=== PATIENT | female | born 1970 | race American Indian/Alaskan Native ===

== ENCOUNTER 2017-02-10 08:05 | Inpatient (IN) | payer BC ==
[~2017-02-10 08:05] MED LIST: ANCEF/STERILE WATER 2 GM/20 ML 2 GM/20 ML SYRINGE IV NR; APRESOLINE IV PRN; DECADRON ONE; DILAUDID IV PRN; DILAUDID ONE; DIPRIVAN 10 MG/ML IV ONE; FLAGYL 500 MG/100 ML 500 MG/100 ML BAG IV NR; LOVENOX SUB-Q NR; MORPHINE IV PRN; MYLICON PO PRN; NEOSTIGMINE ONE; REGLAN IV PRN; ROBINUL ONE; SUBLIMAZE ONE; TRANSDERM-SCOP TD SCH; XYLOCAINE MPF 2% ONE; ZEMURON IV ONE; ZOFRAN IV PRN; ZOFRAN ONE
[2017-02-10] MEDS ORDERED: TRANSDERM-SCOP TD NR (09:00)
[2017-02-10] MEDS ORDERED: PEPCID IV NR (09:00)
[2017-02-10] MEDS ORDERED: VERSED IV NR (09:00)
--- NOTE | 2017-02-10 09:11 | Anesthesia Day of Surgery ---
Anesthesia Day of Surgery - Day of Surgery Patient Examined: Yes Patient H&P Reviewed: Yes Patient is NPO: Yes
--- NOTE | 2017-02-10 09:11 | Anesthesia Consultation ---
Anesthesia Consult and Med Hx Date of service: 02/10/17 - Airway Anesthetic Teeth Evaluation: Good ROM Head & Neck: Adequate Mental/Hyoid Distance: Adequate Mallampati Class: Class II Intubation Access Assessment: Probably Good - Pulmonary Exam CTA: Yes - Cardiac Exam Cardiac Exam: RRR - Pre-Operative Health Status ASA Pre-Surgery Classification: ASA3 Proposed Anesthetic Plan: General - Pulmonary Hx Smoking: No SOB: No Hx Sleep Apnea: Yes (+CPAP) - Cardiovascular System Hx Hypertension: No - Central Nervous System Hx Seizures: No CVA: No Hx Psychiatric Problems: Yes - Endocrine Hx Renal Disease: No Hx Liver Disease: No Hx Non-Insulin Dependent Diabetes: No - Other Systems Hx Alcohol Use: No Hx Substance Use: No Hx Cancer: No Hx Obesity: Yes (MORBID)
[2017-02-10] MEDS ORDERED: NACL BACTERIOSTATIC INFILTRATI ONE (09:19)
[2017-02-10] MEDS ORDERED: REGLAN PO NR (09:30)
[2017-02-10] MEDS: LACTATED RINGERS 1,000 ML IV SCH ×2 (09:30→23:22)
[2017-02-10 09:53] LABS: Basophils % (Auto) 0.7 % (0.0-1.8); Eosinophils % (Auto) 1.6 % (0.0-4.3); Hematocrit 37.9 % (30.3-42.9); Hemoglobin 12.4 gm/dl (10.1-14.3); Mean Corpuscular HGB Conc 33 % (30-34); Mean Corpuscular Hemoglobin 31 pg (28-32); Mean Corpuscular Volume 94 fl (79-97); Platelet Count 281 K/mm3 (140-440); Red Blood Count 4.01 M/mm3 (3.65-5.03); Red Cell Distribution Width 13.6 % (13.2-15.2); White Blood Count 7.4 K/mm3 (4.5-11.0)
[2017-02-10] MEDS ORDERED: NEO SYNEPHRINE/NS Syringe(OR USE) IV ONE (10:00)
[2017-02-10] MEDS ORDERED: LOVENOX SUB-Q SCH (10:00)
[2017-02-10] MEDS ORDERED: REGLAN IV NR (10:00)
[2017-02-10 10:20] LABS: Alanine Aminotransferase 14 units/L (7-56); Albumin 3.8 g/dL (3.9-5); Alkaline Phosphatase 56 units/L (35-129); Anion Gap 16 mmol/L; BUN/Creatinine Ratio 12.85; Blood Urea Nitrogen 9 mg/dL (7-17); Calcium 8.6 mg/dL (8.4-10.2); Carbon Dioxide 25 mmol/L (22-30); Chloride 102.9 mmol/L (98-107); Glucose 107 mg/dL (65-100); Potassium 4.3 mmol/L (3.6-5.0); Sodium 140 mmol/L (137-145); Total Protein 7.5 g/dL (6.3-8.2)
[2017-02-10] MEDS ORDERED: ANCEF/STERILE WATER 2 GM/20 ML 2 GM/20 ML SYRINGE IV NR (11:00)
[2017-02-10] MEDS ORDERED: FLAGYL 500 MG/100 ML 500 MG/100 ML BAG IV NR (11:00)
[2017-02-10] MEDS ORDERED: MARCAINE-EPI/PF 0.5%-1:200,000 INFILTRATI ONE ×3 (12:16→12:54)
[2017-02-10] MEDS ORDERED: XYLOCAINE 1% 20 mL ONE (12:16)
[2017-02-10] MEDS ORDERED: XYLOCAINE 1% 20 mL INFILTRATI ONE (12:24)
[2017-02-10] MEDS ORDERED: NACL 0.9% IR ONE ×2 (12:24)
[2017-02-10] MEDS ORDERED: LACTATED RINGERS 1,000 ML ONE (13:00)
[2017-02-10] MEDS ORDERED: SUBLIMAZE ONE (13:27)
[2017-02-10] MEDS ORDERED: DILAUDID IV PRN (15:13)
[2017-02-10] MEDS: DILAUDID IV PRN ×3 (15:35→15:56)
[2017-02-10] MEDS ORDERED: TORADOL ONE (15:44)
[2017-02-10] MEDS ORDERED: TORADOL IV ONE (15:49)
--- NOTE | 2017-02-10 16:19 | Post Anesthesia Evaluation ---
- Post Anesthesia Evaluation Patient Participated: Yes Airway Patent: Yes Stable Respiratory Function: Yes Nausea/Vomiting: No Temp > 96.8F: Yes Pain Manageable: Yes Adequeate Hydration: Yes Anesthesia Complications: No Block Receding Appropriately: Not Applicable Patient on Ventilator: No
[2017-02-11] MEDS: TORADOL IV SCH ×2 (01:29→08:34)
[2017-02-11] MEDS: LACTATED RINGERS 1,000 ML IV SCH (06:20)
[2017-02-11 07:54] LABS: Basophils % (Auto) 0.4 % (0.0-1.8); Eosinophils % (Auto) 0.2 % (0.0-4.3); Hematocrit 33.6 % (30.3-42.9); Hemoglobin 11.2 gm/dl (10.1-14.3); Mean Corpuscular HGB Conc 33 % (30-34); Mean Corpuscular Hemoglobin 32 pg (28-32); Mean Corpuscular Volume 95 fl (79-97); Platelet Count 244 K/mm3 (140-440); Red Blood Count 3.56 M/mm3 (3.65-5.03); Red Cell Distribution Width 13.3 % (13.2-15.2); White Blood Count 14.3 K/mm3 (4.5-11.0)
[2017-02-11 08:05] LABS: Anion Gap 15 mmol/L; Blood Urea Nitrogen 9 mg/dL (7-17); Calcium 8.2 mg/dL (8.4-10.2); Carbon Dioxide 25 mmol/L (22-30); Glucose 94 mg/dL (65-100); Potassium 4.2 mmol/L (3.6-5.0); Sodium 137 mmol/L (137-145)
--- NOTE | 2017-02-11 08:33 | Admit Criteria Form ---
Admission Criteria Documentation: AMBULATORY SURGERY EXCEPTION CRITERIA Ambulatory Surgery Exception Criteria ( Place 'X' for any and all applicable criteria): Surgery or procedure performed on ambulatory basis may require inpatient stay for[A] ANY ONE of the following(1)(2)(3)(4)(5)(6)(7)(8)(9): [X] I. A preoperative situation, condition, or finding that warrants inpatient stay as indicated by ANY ONE of the following: [] a) Inpatient care needed because of severity of a disease or condition rather than the surgery (eg, severe cardiac or respiratory disease, severe infection) (15) (16 ) (17) (18) [] b) Emergent procedure (eg, angioplasty for acute ischemia)(19) [] c) Complex surgical approach or situation as indicated by ANY ONE of the following(3): [] i) Open approach needed instead of usual endoscopic, transcatheter, or other less invasive procedure [] ii) Difficult approach because of previous operation [] iii) Airway monitoring required after open neck procedures(20)(21) [] iv) Large mass requiring unusually extensive dissection [] v) Additional complicating feature requiring inpatient care (eg, drain management)(22(23): [X] d) Major surgery in a pt with high anesthetic risk as indicated by ANY ONE of the following (2)(3)(5)(7)(8): [X] i) ASA risk class III or higher (severe systemic disease impairing function) [D] [] ii) Advanced age (eg, older than 85 years)(14)(24) [] iii) Symptomatic heart failure(25) [] iv) Symptomatic asthma or COPD(8)(21) [] v) Morbid obesity with hemodynamic or respiratory problems(20)( 21)(26)(27) [] vi) Obstructive sleep apnea(20)(21) [] vii) Former premature infants who are younger than 60 weeks [] viii) High risk for severe postoperative abnormalities (eg, severe postoperative hypocalcemia after parathyroidectomy for severe hyperparathyroidism)(27)( 28) [] ix) Unstable angina(25) [] e) Drug-related risk requiring inpatient stay as indicated by ANY ONE of the following(5)(10)(14)(32)(33) [] i) Procedure requires discontinuing drugs or other therapy (eg , antiarrhythmic medication, antiseizure medication), which necessitates inpatient observation or treatment.(18)(31) [] ii) Major surgery and high risk drug use as indicated by ANY ONE of the following: [] 1) Active abuse of cocaine or similar drug [] 2) Monoamine oxidase inhibitor use [] 3) Other drug identified as posing risk [] f) Inadequate outpatient care situation as indicated by ANY ONE of the following(5)(10)(14)(32)(33) [] i) Patient lives remote from medical facility and procedure has urgent complication potential, and temporary nearby residence cannot be arranged [] ii) Patient will have postprocedure incapacitation and inadequate assistance at home, or alternative level of care cannot be arranged. [] iii) Patient will have long general anesthesia or procedure side effect resolution time, and competent person to stay with patient on first postoperative night at home or alternative level of care cannot be arranged. []iv) Other inadequate outpatient situation that cannot be handled by other means [] II. A perioperative event, condition, or finding that warrants inpatient stay as indicated by ANY ONE of the following (1)(2)(3): [] a) Inadequate physiologic recovery: cardiovascular, respiratory, or hemodynamic status not normal or near preoperative baseline(18) [] b) Hemodynamic instability [] c) Patient not alert with near normal or baseline mental status [] d) Temperature not normal or as expected and not appropriate for outpatient treatment of condition [] e) Ambulatory or appropriate activity level status not yet achieved post procedure [E](34)(35)(36) [] f) Operative site not appropriate (eg, unexpected or excessive drainage or bleeding) [] g) Postoperative effects not resolved or adequately managed (eg, significant pain or vomiting not appropriate for outpatient or next level of care)(10)(12) [] h) Complicating features requiring inpatient care as indicated by ANY ONE of the following(37): [] i) Severe complications of procedure (eg, bowel injury, airway compromise, vascular injury,severe hemorrhage) [] ii) Extensive (eg, dissection far beyond usual scope of procedure ) or prolonged (eg, 120 minutes beyond usual) surgery needed requiring inpatient postoperative care [] iii) Conversion to an open or complex procedure that requires inpatient care (eg, open vs laparoscopic cholecystectomy, abdominal vs vaginal hysterectomy)(38) [] iv) Comorbid condition or test result identified during or post procedure that requires inpatient care (7) [] v) Malignant hyperthermia(30) [] vi) Other complicating feature requiring inpatient care(22)(23) Inpatient stay may be needed until ALL of the following are present (1)(2)(3)(4) (5)(6)(10)(14)(33)(40): []a) Physiologic recovery: cardiovascular, respiratory, and hemodynamic status normal or near preoperative baseline []b) Hemodynamic stability []c) Patient alert, with near normal or baseline mental status []d) Temperature appropriate: patient afebrile or temperature appropriate for outpt treatment of condition []e) Activity level appropriate: ambulatory or appropriate activity level post procedure []f) Operative site appropriate as indicated by ALL of the following: []i) Site dry or with expected drainage []ii) Any blood noted is as expected for procedure. []g) Postoperative effects resolved or managed as indicated by ALL of the following: []i) Pain management appropriate for outpatient (or next level of) care(10) []ii) Minimal nausea and vomiting: if present, successfully treated with oral medication(12) []iii) Headache, dizziness, or drowsiness (if present) are mild. []h) Voiding status acceptable as indicated by ANY ONE of the following: []i) Voiding spontaneously []ii) No voiding but instructions given for follow-up in 6 to 8 hours []iii) Urinary catheter in place, and instructions given for follow-up []i) Complicating features requiring inpatient care manageable at a lower level of care(37) []j) Comorbid conditions manageable at a lower level of care(37) The original [employer] content created by [employer] has been revised. The portions of the content which have been revised are identified through the use of italic text or in bold, and [facility] [employer] has neither reviewed nor approved the modified material. All other unmodified content is copyright [employer]. Please see references footnoted in the original [employer] edition 2016 Admission Criteria Met: Yes
[2017-02-11 08:59] VITALS: BP 128/78
--- NOTE | 2017-02-11 09:37 | Progress Note ---
Subjective Date of service: 02/11/17 Principal diagnosis: gerd, epigastric pain Interval history: Patient seen post-op day 1, satisfied with anesthesia, ambulating. Objective - Constitutional Vitals: Vital Signs - 12hr 02/10/17 02/11/17 02/11/17 22:00 00:12 01:29 Temperature 98.2 F Pulse Rate [ 70 93 H From Monitor] Respiratory 20 16 Rate Blood Pressure 118/72 [Left Arm] O2 Sat by Pulse 93 Oximetry 02/11/17 02/11/17 05:12 08:00 Temperature 98.2 F 98.4 F Pulse Rate [ 89 82 From Monitor] Respiratory 20 18 Rate Blood Pressure 122/77 128/78 [Left Arm] O2 Sat by Pulse 100 95 Oximetry - Labs CBC & Chem 7: 02/11/17 06:36 02/11/17 06:36 Labs: Abnormal lab results 02/10/17 02/10/17 02/11/17 Range/Units 09:30 09:30 06:36 WBC 14.3 H (4.5-11.0) K/mm3 RBC 3.56 L (3.65-5.03) M/mm3 Lymph % (Auto) 10.5 L (13.4-35.0) % [place] % (Auto) 10.4 H 10.0 H (0.0-7.3) % [place]born # 1.4 H (0.0-0.8) K/mm3 Seg Neutrophils % 78.9 H (40.0-70.0) % Seg Neutrophils # 11.3 H (1.8-7.7) K/mm3 Creatinine (0.7-1.2) mg/dL Glucose 107 H (65-100) mg/dL Calcium (8.4-10.2) mg/dL Albumin 3.8 L (3.9-5) g/dL 02/11/17 Range/Units 06:36 WBC (4.5-11.0) K/mm3 RBC (3.65-5.03) M/mm3 Lymph % (Auto) (13.4-35.0) % San[place] % (Auto) (0.0-7.3) % [place] # (0.0-0.8) K/mm3 Seg Neutrophils % (40.0-70.0) % Seg Neutrophils # (1.8-7.7) K/mm3 Creatinine 0.6 L (0.7-1.2) mg/dL Glucose (65-100) mg/dL Calcium 8.2 L (8.4-10.2) mg/dL Albumin (3.9-5) g/dL
--- NOTE | 2017-02-11 12:05 | Discharge Summary ---
Providers - Providers Date of Admission: 02/10/17 08:05 Date of discharge: 02/11/17 Attending physician: ISAC GRAF Primary care physician: ORDER EXPEDITER Hospitalization Reason for admission: postop observation Condition: Stable Disposition: DC-01 TO HOME OR SELFCARE Core Measure Documentation - Palliative Care Palliative Care/ Comfort Measures: Not Applicable - Core Measures Any of the following diagnoses?: none Exam - Physical Exam Narrative exam: VSS NAD Lungs CTA BL Heart RRR Abd soft, ND, appropriate TTP around wounds. Dressings c/d/i Neuro AAOx3 - Constitutional Vitals: Temp Pulse Resp BP Pulse Ox 98.4 F 82 18 128/78 95 02/11/17 08:00 02/11/17 08:00 02/11/17 08:00 02/11/17 08:00 02/11/17 08:00 Plan Activity: advance as tolerated Diet: other (briatric stage 1) Wound: keep clean and dry Special Instructions: no heavy lifting Follow up with: PRIMARY CAREMD [Primary Care Provider] - 7 Days
== END 2017-02-11 13:40 | disposition home or self-care (01) | DRG 327 ==
LOC: 3A 08:05 → 2B-SURG 15:22
PROVIDERS: ADMIT Specialist; ATTEND Specialist
PROC: 0BQS4ZZ (ICD-10-PCS; principal; 2017-02-10)
PROC: 0D164ZA Bypass Stomach to Jejunum, Percutaneous Endoscopic Approach (ICD-10-PCS; principal; 2017-02-10)
PROC: 0BQR4ZZ (ICD-10-PCS; principal; 2017-02-10)
PROC: 0D1B4ZH Bypass Ileum to Cecum, Percutaneous Endoscopic Approach (ICD-10-PCS; principal; 2017-02-10)
DX: K91.1 Postgastric surgery syndromes (principal); Z68.42 Body mass index [BMI] 45.0-49.9, adult; K95.89 Other complications of other bariatric procedure; K21.9 Gastro-esophageal reflux disease without esophagitis; F32.9 Major depressive disorder, single episode, unspecified; F41.9 Anxiety disorder, unspecified; G47.30 Sleep apnea, unspecified; E66.01 Morbid (severe) obesity due to excess calories; Z98.84 Bariatric surgery status; Z90.49 Acquired absence of other specified parts of digestive tract; Z83.3 Family history of diabetes mellitus; Z01.818 Encounter for other preprocedural examination; Y83.2 Surgical operation with anastomosis, bypass or graft as the cause of abnormal reaction of the patient, or of later complication, without mention of misadventure at the time of the procedure; K44.9 Diaphragmatic hernia without obstruction or gangrene
CPT/HCPCS: 36415; 80048; 80053; 81025; 85025; 94760; A4217; C9250; J0690; J1100; J1170; J1650; J1885; J2250; J2370; J2405; J2704; J2710; J2765; J3010; J7120

== ENCOUNTER 2017-06-23 06:47 | Day surgery (SDC) | payer BC ==
[2017-06-23] MEDS ORDERED: WATER FOR IRRIG STERILE IR ONE (07:07)
--- NOTE | 2017-06-23 07:43 | Anesthesia Day of Surgery ---
Anesthesia Day of Surgery - Day of Surgery Patient Examined: Yes Patient H&P Reviewed: Yes Patient is NPO: Yes
--- NOTE | 2017-06-23 07:43 | Anesthesia Consultation ---
Anesthesia Consult and Med Hx Date of service: 06/23/17 - Airway Anesthetic Teeth Evaluation: Good ROM Head & Neck: Adequate Mental/Hyoid Distance: Adequate Mallampati Class: Class II Intubation Access Assessment: Probably Good - Pulmonary Exam CTA: Yes - Cardiac Exam Cardiac Exam: RRR - Pre-Operative Health Status ASA Pre-Surgery Classification: ASA3 Proposed Anesthetic Plan: MAC - Pulmonary Hx Smoking: No Hx Asthma: No SOB: No COPD: No Hx Pneumonia: No Hx Sleep Apnea: Yes (cpap) - Cardiovascular System Hx Hypertension: Yes - Central Nervous System Hx Seizures: No CVA: No Hx Psychiatric Problems: Yes - Endocrine Hx Renal Disease: No Hx End Stage Renal Disease: No Hx Liver Disease: No Hx Non-Insulin Dependent Diabetes: No - Other Systems Hx Alcohol Use: No Hx Substance Use: No Hx Cancer: No Hx Obesity: Yes (MORBID)
--- NOTE | 2017-06-23 07:49 | Operative Report ---
Operative Report Operative Report: EGD Post bypass revision DATE: 06/23/17 OPERATIVE REPORT - EGD PREOP DIAGNOSIS: gastric dyspepsia, epigastric pain POSTOP DIAGNOSIS: Bile reflux SURGERY: Upper endoscopy. SURGEON: Dr. Garth Gray SCRIPT MANAGER: Sherman Carson DO TYPE OF ANESTHESIA: MAC. ESTIMATED BLOOD LOSS: None. COMPLICATIONS: None. SPECIMENS REMOVED: None. FINDINGS: 1. normal esophagus 2. gastric pouch - 20ml 3. gastrojejunal anastomosis is 10-15 mm INDICATIONS:INDICATION FOR PROCEDURE: Patient is a 46-year-old Female s/p gastric bypass revision January 2017. The patient is here today for evaluation due to epigastric pain with eating and nausea/vomiting. PROCEDURE DETAILS: After consent was reviewed, patient was taken back to the operating room where patient was placed in the left lateral decubitus position and a bite block was placed in the mouth. After a time-out was called, MAC anesthesia was initiated. I then passed the endoscope into the patients oropharynx, into the esophagus, visualized the entire esophagus, which was all within normal limits. I then visualized the gastric pouch which was normal and about 20cc. Large amounts of bile refluxed from what appeared to be the GJ in to the stomach during the procedure. The bile was suctioned several times. The gastrojejunal anastomosis was normal at about 10-15mm. The proximal portion of the jose limb was normal. I then desufflated the gastric pouch and removed the endoscope. Patient tolerated procedure well and was transferred to recovery room in good and stable condition
--- NOTE | 2017-06-23 07:55 | Discharge Summary ---
Providers - Providers Attending physician: ISAC GRAF Primary care physician: BREE COBIAN Hospitalization Reason for admission: egd Procedures: egd Hospital course: 46 y.o. F presented to endoscopy for an EGD. She tolerated the procedure well. She was discharged home the same day. Disposition: TO HOME OR SELFCARE Core Measure Documentation - Palliative Care Palliative Care/ Comfort Measures: Not Applicable - Core Measures Any of the following diagnoses?: none Exam - Physical Exam Narrative exam: no change from prior Plan Follow up with: BREE COBIAN MD [Primary Care Provider] - 7 Days
[2017-06-23] MEDS ORDERED: PEPCID IV NR (08:00)
[2017-06-23] MEDS ORDERED: NACL 0.9% 1000 ML 1,000 ML IV SCH (08:00)
[2017-06-23] MEDS ORDERED: DIPRIVAN 10 MG/ML IV ONE ×2 (08:26→09:12)
[2017-06-23] MEDS ORDERED: PEPCID IV ONE (08:41)
[2017-06-23] MEDS ORDERED: ROBINUL ONE (09:00)
--- NOTE | 2017-06-23 09:39 | Post Anesthesia Evaluation ---
- Post Anesthesia Evaluation Patient Participated: Yes Airway Patent: Yes Stable Respiratory Function: Yes Temp > 96.8F: Yes Pain Manageable: Yes Adequeate Hydration: Yes Anesthesia Complications: No
[2017-06-23 09:43] VITALS: BP 158/94
== END 2017-06-23 06:48 | disposition home or self-care (01) ==
LOC: GIO 06:47
PROVIDERS: ATTEND Specialist
DX: K30 Functional dyspepsia (principal); K83.9 Disease of biliary tract, unspecified; K21.9 Gastro-esophageal reflux disease without esophagitis; I10 Essential (primary) hypertension; G47.33 Obstructive sleep apnea (adult) (pediatric); E66.01 Morbid (severe) obesity due to excess calories; F32.9 Major depressive disorder, single episode, unspecified; F41.9 Anxiety disorder, unspecified; Z68.38 Body mass index [BMI] 38.0-38.9, adult; Z98.0 Intestinal bypass and anastomosis status; Z98.84 Bariatric surgery status; Z90.49 Acquired absence of other specified parts of digestive tract; Z99.89 Dependence on other enabling machines and devices; Z98.890 Other specified postprocedural states
CPT/HCPCS: 43235; 81025; 96374; J2704; J7030

== ENCOUNTER 2017-07-31 07:28 | Outpatient (CLI) | payer BC ==
--- NOTE | 2017-07-31 08:59 | Fluoroscopy Report ---
UPPER GI SERIES WITH AIR-CONTRAST HISTORY: Nausea with vomiting, previous gastric bypass surgery. FINDINGS: No comparison. Survey Engineer film of the abdomen demonstrates a normal bowel gas pattern. Cholecystectomy changes are noted. Deglutition is normal. The esophagus is normal caliber and mucosal pattern. There is no evidence for mucosal defect or hiatal hernia. Occasional esophageal spasm was noted. Very small gastric remnant remains. No focal abnormality is detected. No fissure is identified. Multiple proximal small bowel loops demonstrate normal mucosal pattern and caliber throughout. IMPRESSION: No discrete abnormality is appreciated on upper GI series. Gastric bypass changes are identified. There is no evidence for obstruction, mucosal defect or fissure. Occasional episodes of esophageal spasm were noted.
== END 2017-07-31 07:29 | disposition home or self-care (01) ==
LOC: FLUORO 07:28
PROVIDERS: ATTEND Specialist
DX: K22.4 Dyskinesia of esophagus (principal); Z90.49 Acquired absence of other specified parts of digestive tract; Z98.84 Bariatric surgery status
CPT/HCPCS: 74247

== ENCOUNTER 2018-01-12 07:47 | Inpatient (IN) | payer BC ==
[~2018-01-12 07:47] MED LIST changes: -DECADRON ONE; -DILAUDID ONE; -DIPRIVAN 10 MG/ML IV ONE; -MORPHINE IV PRN; -NEOSTIGMINE ONE; -ROBINUL ONE; -SUBLIMAZE ONE; -TRANSDERM-SCOP TD SCH; -XYLOCAINE MPF 2% ONE; -ZEMURON IV ONE; -ZOFRAN ONE
[2018-01-12] MEDS: LACTATED RINGERS 1,000 ML IV SCH ×3 (09:15→23:40)
[2018-01-12 09:16] LABS: Bilirubin,Urine NEG (Negative); Blood,Urine NEG (Negative); Color,Urine Yellow (Yellow); Mucus,Urine FEW /HPF; Protein,Urine <15 mg/dL mg/dL (Negative); Urobilinogen,Urine < 2.0 mg/dL (<2.0); WBC,Urine < 1.0 /HPF (0.0-6.0)
[2018-01-12] MEDS ORDERED: NACL 0.9% 500 ML 500 ML IV NR (09:30)
[2018-01-12] MEDS ORDERED: ZOFRAN IV PRN (09:42)
[2018-01-12] MEDS ORDERED: DILAUDID IV PRN (09:42)
--- NOTE | 2018-01-12 09:44 | Anesthesia Consultation ---
Anesthesia Consult and Med Hx Date of service: 01/12/18 - Airway Anesthetic Teeth Evaluation: Good ROM Head & Neck: Adequate Mental/Hyoid Distance: Adequate Mallampati Class: Class II Intubation Access Assessment: Probably Good - Pulmonary Exam CTA: Yes - Cardiac Exam Cardiac Exam: RRR - Pre-Operative Health Status ASA Pre-Surgery Classification: ASA3 Proposed Anesthetic Plan: General - Pulmonary Hx Smoking: No Hx Asthma: No SOB: No COPD: No Hx Pneumonia: No Hx Sleep Apnea: Yes - Cardiovascular System Hx Hypertension: No - Central Nervous System Hx Seizures: No CVA: No Hx Psychiatric Problems: Yes - Endocrine Hx Renal Disease: No Hx End Stage Renal Disease: No Hx Liver Disease: No Hx Non-Insulin Dependent Diabetes: No - Hematic Hx Anemia: Yes - Other Systems Hx Alcohol Use: No Hx Substance Use: No Hx Cancer: No Hx Obesity: Yes (MORBID)
--- NOTE | 2018-01-12 09:44 | Anesthesia Day of Surgery ---
Anesthesia Day of Surgery - Day of Surgery Patient Examined: Yes Patient H&P Reviewed: Yes Patient is NPO: Yes
[2018-01-12 10:01] LABS: Hematocrit 26.9 % (30.3-42.9); Hemoglobin 8.7 gm/dl (10.1-14.3); Mean Corpuscular HGB Conc 32 % (30-34); Mean Corpuscular Hemoglobin 30 pg (28-32); Mean Corpuscular Volume 92 fl (79-97); Platelet Count 292 K/mm3 (140-440); Red Blood Count 2.93 M/mm3 (3.65-5.03); Red Cell Distribution Width 15.7 % (13.2-15.2)
[2018-01-12] MEDS: TRANSDERM-SCOP TD SCH (10:15)
[2018-01-12 10:21] LABS: Alanine Aminotransferase 16 units/L (7-56); Albumin 3.1 g/dL (3.9-5); BUN/Creatinine Ratio 58; Blood Urea Nitrogen 23 mg/dL (7-17); Calcium 8.4 mg/dL (8.4-10.2); Hemolysis Index 4
[2018-01-12] MEDS ORDERED: DIPRIVAN 10 MG/ML IV ONE (10:24)
[2018-01-12] MEDS ORDERED: SUBLIMAZE ONE (10:24)
[2018-01-12] MEDS ORDERED: REGLAN ONE (10:24)
[2018-01-12] MEDS ORDERED: XYLOCAINE MPF 2% ONE (10:24)
[2018-01-12] MEDS ORDERED: ZOFRAN ONE (10:24)
[2018-01-12] MEDS ORDERED: ZEMURON IV ONE (10:24)
[2018-01-12] MEDS ORDERED: XYLOCAINE 1% 20 mL ONE (10:34)
[2018-01-12] MEDS ORDERED: MARCAINE-EPI 0.5%-1:200,000 INFILTRATI ONE ×2 (10:35→10:40)
[2018-01-12] MEDS ORDERED: XYLOCAINE 1% 20 mL INFILTRATI ONE (10:40)
[2018-01-12] MEDS ORDERED: NACL 0.9% IR ONE (10:40)
[2018-01-12] MEDS ORDERED: VERSED ONE (11:27)
[2018-01-12 11:46] LABS: Total Cells Counted 100
[2018-01-12 11:47] LABS: Anisocytosis 1+; Platelet Estimate Cons
[2018-01-12] MEDS ORDERED: DILAUDID ONE ×2 (12:06→14:51)
[2018-01-12] MEDS ORDERED: ROBINUL ONE (12:20)
[2018-01-12] MEDS ORDERED: BLOXIVERZ ONE (12:20)
[2018-01-12] MEDS ORDERED: NEO SYNEPHRINE/NS Syringe(OR USE) IV ONE (12:21)
[2018-01-12] MEDS ORDERED: LACTATED RINGERS 1,000 ML ONE (12:22)
--- NOTE | 2018-01-12 14:47 | Operative Report ---
PREOPERATIVE DIAGNOSES: Severe malnutrition following laparoscopic enteroenterostomy or revisional gastrojejunostomy in 01/2017. The patient has been suffering for some time with severe diarrhea and malnutrition requiring an enteral hyperalimentation to sustain her protein levels. She has progressively gotten weak and dizzy at times, then episodes of hypertension. Her original gastric bypass was done in 2009 ____ [facility] and the patient's main complaint is chronic, severe diarrhea, malnutrition as recalcitrant to medications. 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 POSTOPERATIVE DIAGNOSES: Status post revision of gastrojejunostomy with short bowel syndrome with malnutrition and a short bowel syndrome with only 240 cm of common channel small bowel. PROCEDURE: Laparoscopic reversal of revision of enteroenterostomy, lengthening of the common channel to 400 cm, and laparoscopic feeding gastrostomy. SURGEON: Charles Liang MD OCEAN FORWARDER: Hi Freeman ANESTHESIA: General. OPERATIVE TECHNIQUE: The patient was placed on the operating table in the dorsal supine position and following satisfactory induction of general anesthesia, the abdomen was prepped using Hibiclens solution and scrubbed and draped in a sterile fashion. Then, using a sharp skin knife, a skin incision was made at the umbilicus and the Veress needle was placed with insufflation of CO2. After adequate insufflation of CO2, it was accomplished inside the abdominal cavity. A 10 mm trocar was then placed inside the abdominal cavity with inspection and follow with the endoscope. After the endoscope showed no evidence of adhesions, several of the trocars were placed to strategically perform the procedure. We identified the patient's Shari-en-Y limb and the Shari-en-Y limb was approximately 100 cm from the gastrojejunostomy. The Shari-en-Y limb entered into a loop channel with the common channel. As we counted down, it was approximately 240 cm from the ileocecal valve. This distance appeared to be too short for the patient to have adequate nutrition without severe diarrhea. We therefore proceeded to lengthen this portion by taking the Shari-en-Y limb down with a linear cutting stapling device. After this was taken down, we then ran the small bowel up to another 200 cm, making her common channel now 404-450 cm. This Shari-en-Y limb was then anastomosed to this new spot on the small bowel and this was accomplished with a linear cutting stapling device with ____ was made on the Shari-en-Y limb and into the small bowel at that point. The ostomies were closed with the linear cutting stapling device. Because of the patient's ongoing malnutrition and her receiving IV alimentation, it was felt that she will probably be better off if she receives p.o. as well as enteral alimentation. We therefore performed a gastrostomy by performing a gastrotomy placed and the PEG tube through the gastrotomy and brought out through a separate stab incision along the anterior abdominal wall. This was secured into place. As this was secured in place, we then desufflated the abdominal cavity. The umbilicus was closed using interrupted simple suture of #1 PDS and the skin was closed using interrupted subdermal sutures of 4-0 Monocryl. Steri-Strips were applied to the wound. The patient tolerated the procedure well and was sent to recovery room in satisfactory condition. JOB# [id number] SEAMUS/KENDY
[2018-01-12] MEDS: DILAUDID IV PRN (14:55)
[2018-01-12] MEDS: MORPHINE IV PRN (16:49)
[2018-01-12] MEDS: NORCO PO PRN ×2 (19:57→23:39)
[2018-01-13 07:35] LABS: Eosinophils # (Auto) 0.1 K/mm3 (0.0-0.4); Hematocrit 28.2 % (30.3-42.9); Hemoglobin 9.1 gm/dl (10.1-14.3); Lymphocytes # (Auto) 0.5 K/mm3 (1.2-5.4); Lymphocytes % (Auto) 4.4 % (13.4-35.0); Mean Corpuscular HGB Conc 32 % (30-34); Mean Corpuscular Hemoglobin 29 pg (28-32); Mean Corpuscular Volume 89 fl (79-97); Monocytes # (Auto) 0.7 K/mm3 (0.0-0.8); Monocytes % (Auto) 5.8 % (0.0-7.3); Platelet Count 297 K/mm3 (140-440); Red Blood Count 3.15 M/mm3 (3.65-5.03)
[2018-01-13 08:00] LABS: BUN/Creatinine Ratio 35; Blood Urea Nitrogen 14 mg/dL (7-17); Calcium 8.1 mg/dL (8.4-10.2); Hemolysis Index 2
[2018-01-13] MEDS: WELLBUTRIN SR PO SCH (10:29)
[2018-01-13] MEDS: LOVENOX SUB-Q SCH (10:29)
[2018-01-13] MEDS: ATIVAN PO SCH (10:29)
[2018-01-13] MEDS: MORPHINE IV PRN (10:41)
[2018-01-13] MEDS: DILAUDID IV PRN ×2 (12:23→19:17)
[2018-01-13] MEDS: LACTATED RINGERS 1,000 ML IV SCH ×2 (12:35→19:00)
[2018-01-13] MEDS ORDERED: TYLENOL PO PRN (13:33)
[2018-01-13] MEDS: TYLENOL PO PRN (13:51)
[2018-01-13] MEDS ORDERED: POTASSIUM CHLORIDE PO ONE ×2 (14:57→18:30)
--- NOTE | 2018-01-13 15:00 | Progress Note ---
Assessment and Plan 47 y.o. F with malnutrition, depression now s/p reversal of laparoscopic entero- entersotomy and placement of gastrostomy tube POD 1 Pain control: Pt is having severe pain at G tube site insertion. Robaxin will be added to help her pain -continue current meds- morphine, dilauldid, lortab Nausea control- zofran diet: caty clears Hypomag Mag sulfate Malnutrition: 3.1 albumin prior to surgery. due to massive diarrhea pt become dizzy and malnourished, therefore she underwent reversal of the bp limb lengthening previously performed. Depression: continue home medication GI/DVT proph continue to ambulate and use IS Subjective Narrative: pt has severe pain at the gastrostomy tube site. She has recieved dilauldid mophine and lortab which have not helped the pain. She feels nausea. No vomiting. tolerated ice chips Tmax 100.8 today Objective Vital Signs - 12hr 01/13/18 01/13/18 01/13/18 04:28 07:44 10:00 Temperature 98.2 F 99.1 F Pulse Rate 98 H 97 H Respiratory 20 18 Rate Respiratory Rate [Abdomen] Blood Pressure 121/75 Blood Pressure 122/61 [Left] O2 Sat by Pulse 99 99 99 Oximetry 01/13/18 01/13/18 01/13/18 10:40 10:41 11:11 Temperature Pulse Rate Respiratory 22 22 Rate Respiratory 22 Rate [Abdomen] Blood Pressure Blood Pressure [Left] O2 Sat by Pulse Oximetry 01/13/18 01/13/18 01/13/18 12:23 12:45 12:53 Temperature 100.8 F H Pulse Rate 107 H Respiratory 20 24 20 Rate Respiratory Rate [Abdomen] Blood Pressure Blood Pressure 129/78 [Left] O2 Sat by Pulse 93 Oximetry - General physical appearance Narrative Exam: Gen: A+Oc3 Cardio RRR Lungs equal rise and fall of chest abd: soft,flat abd, tender at incision sites. no rebound no guarding . incision sites minimal blood tinged. dressing changed at G tube site. drainage to gravity with johnson bag. Minimal green/brown output. tender at site. - Labs 01/13/18 06:42 01/13/18 06:42 Diabetes panel 01/13/18 Range/Units 06:42 Sodium 137 (137-145) mmol/L Potassium 3.4 L D (3.6-5.0) mmol/L Chloride 99.8 (98-107) mmol/L Carbon Dioxide 24 (22-30) mmol/L BUN 14 (7-17) mg/dL Creatinine 0.4 L (0.7-1.2) mg/dL Glucose 95 (65-100) mg/dL Calcium 8.1 L (8.4-10.2) mg/dL Calcium panel 01/13/18 01/13/18 Range/Units 06:42 06:42 Calcium 8.1 L (8.4-10.2) mg/dL Phosphorus 4.10 (2.5-4.5) mg/dL Pituitary panel 01/13/18 Range/Units 06:42 Sodium 137 (137-145) mmol/L Potassium 3.4 L D (3.6-5.0) mmol/L Chloride 99.8 (98-107) mmol/L Carbon Dioxide 24 (22-30) mmol/L BUN 14 (7-17) mg/dL Creatinine 0.4 L (0.7-1.2) mg/dL Glucose 95 (65-100) mg/dL Calcium 8.1 L (8.4-10.2) mg/dL Adrenal panel 01/13/18 Range/Units 06:42 Sodium 137 (137-145) mmol/L Potassium 3.4 L D (3.6-5.0) mmol/L Chloride 99.8 (98-107) mmol/L Carbon Dioxide 24 (22-30) mmol/L BUN 14 (7-17) mg/dL Creatinine 0.4 L (0.7-1.2) mg/dL Glucose 95 (65-100) mg/dL Calcium 8.1 L (8.4-10.2) mg/dL
[2018-01-13] MEDS ORDERED: MAGNESIUM SULFATE 2GM/50ML 2 GM/50 ML BAG IV ONE (16:00)
[2018-01-13] MEDS: ROBAXIN 1,000 MG in NACL 0.9% 250ML 250 ML IV SCH ×2 (18:46→22:42)
[2018-01-13] MEDS: PROTONIX IV SCH (19:00)
[2018-01-14] MEDS: DILAUDID IV PRN ×4 (00:40→22:25)
[2018-01-14 05:40] LABS: Basophils # (Auto) 0.1 K/mm3 (0.0-0.1); Basophils % (Auto) 0.6 % (0.0-1.8); Eosinophils # (Auto) 0.4 K/mm3 (0.0-0.4); Eosinophils % (Auto) 3.2 % (0.0-4.3); Hematocrit 25.5 % (30.3-42.9); Hemoglobin 8.2 gm/dl (10.1-14.3); Lymphocytes # (Auto) 1.5 K/mm3 (1.2-5.4); Mean Corpuscular HGB Conc 32 % (30-34); Mean Corpuscular Hemoglobin 29 pg (28-32); Mean Corpuscular Volume 90 fl (79-97); Monocytes % (Auto) 7.6 % (0.0-7.3); Platelet Count 253 K/mm3 (140-440); Red Blood Count 2.82 M/mm3 (3.65-5.03); Red Cell Distribution Width 16.5 % (13.2-15.2)
[2018-01-14 06:05] LABS: BUN/Creatinine Ratio 18; Blood Urea Nitrogen 7 mg/dL (7-17); Hemolysis Index 74
[2018-01-14] MEDS: ROBAXIN 1,000 MG in NACL 0.9% 250ML 250 ML IV SCH (06:37)
[2018-01-14] MEDS: LACTATED RINGERS 1,000 ML IV SCH ×2 (06:37→18:15)
[2018-01-14] MEDS ORDERED: MAGNESIUM SULFATE 2GM/50ML 2 GM/50 ML BAG IV ONE (09:26)
[2018-01-14] MEDS: LOVENOX SUB-Q SCH (09:52)
[2018-01-14] MEDS: WELLBUTRIN SR PO SCH (09:53)
[2018-01-14] MEDS: ATIVAN PO SCH (09:53)
[2018-01-14] MEDS: PROTONIX IV SCH (09:54)
[2018-01-14] MEDS: TRANSDERM-SCOP TD SCH (09:54)
[2018-01-14] MEDS ORDERED: NACL 0.9% 250ML 250 ML ONE (15:11)
[2018-01-14] MEDS: MORPHINE IV PRN (18:20)
--- NOTE | 2018-01-14 20:20 | Progress Note ---
Assessment and Plan 47 y.o. F with malnutrition, depression now s/p reversal of laparoscopic entero- entersotomy and placement of gastrostomy tube POD 3 Upper extremity edema BL: BL UE venous duplex. r/o clot hx of DVT in left upper ext prior to surgery: pt was taking xarelto. If h/h stable today will start theraputic lovenox. Fever: r/o DVT- duplex . WBC increasing however will trend WBC , if it continues to increase and she continues to have a fever CT abd/pelvis may be warranted. will follow up in am -CXR, ABD xr (distended) Heller culture G tube to gravity since distended. Pain control: Pt is having severe pain at G tube site insertion. Robaxin -continue current meds- morphine, dilauldid, lortab Nausea control- zofran diet: caty clears Malnutrition: 3.1 albumin prior to surgery. due to massive diarrhea pt become dizzy and malnourished, therefore she underwent reversal of the bp limb lengthening previously performed. Depression: continue home medication GI/DVT proph continue to ambulate and use IS Dispo: DC when afebrile for 24hrs. tolerating clears, pain controlled. Subjective Narrative: Pt continues to have pain LUQ but somewhat improved. decreased appetite. denies n/v. +ambulation. minimal output from G tube. She feels bloated. +flatus. no bm. +ambulation. tmx 100.6 Objective Vital Signs - 12hr 01/14/18 01/14/18 01/14/18 08:50 11:50 11:51 Temperature 99 F 98.3 F Pulse Rate 107 H 102 H Respiratory 18 Rate Blood Pressure 133/85 Blood Pressure [Left] O2 Sat by Pulse 98 91 Oximetry 01/14/18 01/14/18 01/14/18 16:00 16:45 16:46 Temperature 99.2 F Pulse Rate 100 H 102 H 104 H Respiratory 18 Rate Blood Pressure Blood Pressure 148/86 [Left] O2 Sat by Pulse 94 94 Oximetry - General physical appearance well developed, well nourished, no distress, moderate distress - Respiratory normal expansion, normal respiratory effort - Abdomen soft, other (tender at g tube site. G tube clamped due to low output. incision sites clean dry and intact ) - Integumentary no rash, no growths - Neurologic normal coordination, normal sensation - Musculoskeletal normal posture - Psychiatric oriented to time, oriented to person, oriented to place, speech is normal - Labs 01/15/18 09:13 01/15/18 07:37 Diabetes panel 01/14/18 Range/Units 04:51 Sodium 137 (137-145) mmol/L Potassium 3.8 (3.6-5.0) mmol/L Chloride 99.8 (98-107) mmol/L Carbon Dioxide 25 (22-30) mmol/L BUN 7 (7-17) mg/dL Creatinine 0.4 L (0.7-1.2) mg/dL Glucose 88 (65-100) mg/dL Calcium 8.0 L (8.4-10.2) mg/dL Calcium panel 01/14/18 Range/Units 04:51 Calcium 8.0 L (8.4-10.2) mg/dL Phosphorus 2.80 D (2.5-4.5) mg/dL Pituitary panel 01/14/18 Range/Units 04:51 Sodium 137 (137-145) mmol/L Potassium 3.8 (3.6-5.0) mmol/L Chloride 99.8 (98-107) mmol/L Carbon Dioxide 25 (22-30) mmol/L BUN 7 (7-17) mg/dL Creatinine 0.4 L (0.7-1.2) mg/dL Glucose 88 (65-100) mg/dL Calcium 8.0 L (8.4-10.2) mg/dL Adrenal panel 01/14/18 Range/Units 04:51 Sodium 137 (137-145) mmol/L Potassium 3.8 (3.6-5.0) mmol/L Chloride 99.8 (98-107) mmol/L Carbon Dioxide 25 (22-30) mmol/L BUN 7 (7-17) mg/dL Creatinine 0.4 L (0.7-1.2) mg/dL Glucose 88 (65-100) mg/dL Calcium 8.0 L (8.4-10.2) mg/dL
[2018-01-15] MEDS: LACTATED RINGERS 1,000 ML IV SCH ×3 (00:58→23:55)
[2018-01-15] MEDS: DILAUDID IV PRN ×2 (03:57→20:14)
[2018-01-15 08:20] LABS: BUN/Creatinine Ratio 18; Blood Urea Nitrogen 7 mg/dL (7-17); Calcium 8.1 mg/dL (8.4-10.2); Hemolysis Index 0
[2018-01-15] MEDS: MORPHINE IV PRN ×4 (08:25→23:54)
[2018-01-15] MEDS ORDERED: POTASSIUM CHLORIDE PO NR (09:00)
[2018-01-15 10:03] LABS: Bacteria,Urine 1+ /HPF (Negative); Bilirubin,Urine NEG (Negative); Blood,Urine NEG (Negative); Color,Urine Yellow (Yellow); Mucus,Urine 1+ /HPF; Protein,Urine <15 mg/dL mg/dL (Negative)
[2018-01-15] MEDS: PROTONIX IV SCH (10:16)
[2018-01-15 10:44] LABS: Basophils % (Auto) 0.1 % (0.0-1.8); Eosinophils # (Auto) 0.8 K/mm3 (0.0-0.4); Eosinophils % (Auto) 6.1 % (0.0-4.3); Hematocrit 25.8 % (30.3-42.9); Hemoglobin 8.4 gm/dl (10.1-14.3); Lymphocytes # (Auto) 1.7 K/mm3 (1.2-5.4); Lymphocytes % (Auto) 13.3 % (13.4-35.0); Mean Corpuscular HGB Conc 32 % (30-34); Mean Corpuscular Hemoglobin 29 pg (28-32); Mean Corpuscular Volume 91 fl (79-97); Monocytes # (Auto) 1.5 K/mm3 (0.0-0.8); Monocytes % (Auto) 11.6 % (0.0-7.3); Platelet Count 272 K/mm3 (140-440); Red Blood Count 2.84 M/mm3 (3.65-5.03); Red Cell Distribution Width 16.1 % (13.2-15.2)
--- NOTE | 2018-01-15 11:33 | XRay Report ---
ROUTINE CHEST, TWO VIEWS: HISTORY: Fever. There is poor inspiration. The trachea, heart, mediastinal contour, lung ramírez and bony thorax are unremarkable. IMPRESSION: Unremarkable chest x-ray.
--- NOTE | 2018-01-15 11:33 | XRay Report ---
ABDOMEN, 2 views: History: Abdominal distention. There is a large amount of gas throughout the abdomen involving both the small and large bowel loops. No transition point is appreciated. This has the appearance of a diffuse ileus. No obvious free air or pathologic calcifications. A PEG tube is in place. IMPRESSION: Diffuse ileus.
[2018-01-15] MEDS ORDERED: LOVENOX SUB-Q ONE (12:00)
[2018-01-15] MEDS: ATIVAN PO SCH (12:47)
[2018-01-15] MEDS: WELLBUTRIN SR PO SCH (12:48)
[2018-01-15] MEDS: LOVENOX SUB-Q SCH ×2 (19:58→21:41)
[2018-01-15] MEDS ORDERED: DULCOLAX PR ONE (20:29)
[2018-01-15] MEDS ORDERED: NORMODYNE IV PRN (20:29)
[2018-01-15] MEDS: TYLENOL PO PRN (21:39)
[2018-01-15] MEDS: ROBAXIN PO PRN (23:55)
[2018-01-16] MEDS: LACTATED RINGERS 1,000 ML IV SCH ×2 (06:03→19:34)
[2018-01-16] MEDS: MORPHINE IV PRN ×2 (06:03→11:39)
[2018-01-16] MEDS: PROTONIX IV SCH (11:38)
[2018-01-16] MEDS: LOVENOX SUB-Q SCH ×2 (11:38→21:14)
--- NOTE | 2018-01-16 12:19 | Progress Note ---
Assessment and Plan 47 y.o. F with malnutrition, depression now s/p reversal of laparoscopic entero- entersotomy and placement of gastrostomy tube POD 3 Upper extremity edema BL: BL UE venous duplex. r/o clot - prelim negative. hx of DVT in left upper ext prior to surgery: pt was taking xarelto. If h/h stable today will start theraputic lovenox. Fever: r/o DVT- duplex . WBC increasing however will trend WBC , if it continues to increase and she continues to have a fever CT abd/pelvis may be warranted. will follow up in am--> leukocytosis improving. Last fever last night. -CXR, ABD xr (distended) Heller culture -- > negative thus far G tube to gravity since distended. Pain control: Pt is having severe pain at G tube site insertion. Robaxin -continue current meds- morphine, dilauldid, lortab Nausea control- zofran diet: advance Malnutrition: 3.1 albumin prior to surgery. due to massive diarrhea pt become dizzy and malnourished, therefore she underwent reversal of the bp limb lengthening previously performed. Depression: continue home medication GI/DVT proph continue to ambulate and use IS Dispo: DC when afebrile for 24hrs. tolerating clears, pain controlled. Subjective Narrative: Feels less distended. +gas. no bm. Continues to have pain LUQ. Tmax 100.6 10pm last night. Objective Vital Signs - 12hr 01/16/18 01/16/18 04:33 07:33 Temperature 98.1 F 98.8 F Pulse Rate 99 H 82 Respiratory 20 20 Rate Blood Pressure 140/92 Blood Pressure 153/89 [Left] O2 Sat by Pulse 98 100 Oximetry - General physical appearance well developed, well nourished, no distress - Abdomen soft, distended, other (G tube in place ) Hernia: none - Integumentary no rash, no growths - Neurologic normal coordination, normal sensation - Musculoskeletal normal gait, normal posture - Psychiatric oriented to time, oriented to person, oriented to place, speech is normal - Labs 01/17/18 13:45 01/17/18 13:45
[2018-01-16] MEDS ORDERED: XOPENEX IH PRN ×2 (14:29→14:37)
[2018-01-16] MEDS: ROBAXIN PO PRN (15:24)
[2018-01-16] MEDS: ATIVAN PO SCH (15:26)
[2018-01-16] MEDS: WELLBUTRIN SR PO SCH (15:26)
[2018-01-16 15:31] LABS: BUN/Creatinine Ratio 13; Basophils # (Auto) 0.1 K/mm3 (0.0-0.1); Basophils % (Auto) 1.4 % (0.0-1.8); Blood Urea Nitrogen 5 mg/dL (7-17); Calcium 7.9 mg/dL (8.4-10.2); Eosinophils # (Auto) 0.8 K/mm3 (0.0-0.4); Eosinophils % (Auto) 8.6 % (0.0-4.3); Hematocrit 24.4 % (30.3-42.9); Hemolysis Index 0; Lymphocytes # (Auto) 1.5 K/mm3 (1.2-5.4); Lymphocytes % (Auto) 17.2 % (13.4-35.0); Mean Corpuscular HGB Conc 33 % (30-34); Mean Corpuscular Hemoglobin 29 pg (28-32); Mean Corpuscular Volume 89 fl (79-97); Monocytes # (Auto) 1.2 K/mm3 (0.0-0.8); Monocytes % (Auto) 13.1 % (0.0-7.3); Platelet Count 233 K/mm3 (140-440); Red Blood Count 2.75 M/mm3 (3.65-5.03)
[2018-01-16] MEDS: TYLENOL PO PRN (17:25)
[2018-01-16] MEDS ORDERED: K-DUR PO ONE (19:00)
[2018-01-16] MEDS: DILAUDID IV PRN (19:29)
[2018-01-17] MEDS: DILAUDID IV PRN ×3 (01:24→10:55)
[2018-01-17] MEDS: PROTONIX IV SCH (10:55)
[2018-01-17] MEDS: TRANSDERM-SCOP TD SCH (10:58)
[2018-01-17] MEDS: LOVENOX SUB-Q SCH (11:00)
[2018-01-17] MEDS: ATIVAN PO SCH (11:09)
[2018-01-17] MEDS: WELLBUTRIN SR PO SCH (11:09)
[2018-01-17 14:31] LABS: BUN/Creatinine Ratio 10; Blood Urea Nitrogen 4 mg/dL (7-17); Calcium 7.7 mg/dL (8.4-10.2); Hematocrit 24.1 % (30.3-42.9); Hemoglobin 7.8 gm/dl (10.1-14.3); Hemolysis Index 2; Mean Corpuscular HGB Conc 32 % (30-34); Mean Corpuscular Hemoglobin 29 pg (28-32); Mean Corpuscular Volume 89 fl (79-97); Platelet Count 168 K/mm3 (140-440); Red Blood Count 2.71 M/mm3 (3.65-5.03); Red Cell Distribution Width 16.1 % (13.2-15.2)
--- NOTE | 2018-01-17 15:15 | Progress Note ---
Assessment and Plan 47 y.o. F with malnutrition, depression now s/p reversal of laparoscopic entero- entersotomy and placement of gastrostomy tube POD 6 Upper extremity edema BL: BL UE venous duplex. r/o clot - prelim negative. hx of DVT in left upper ext prior to surgery: pt was taking xarelto. has been on theraputic lovenox in the hospital. Will restart xarelto at home. Small decrease and h/h likely dilutional. no active signs of bleeding. Fever resolved- dc pt Prev. Work up: r/o DVT- duplex . WBC increasing however will trend WBC , if it continues to increase and she continues to have a fever CT abd/pelvis may be warranted. will follow up in am-->resolved -CXR, ABD xr (distended) Heller culture -- > negative G tube to gravity since distended--> capped and tolerating Pain control: Pt is having severe pain at G tube site insertion. Robaxin -continue current meds- morphine, dilauldid, lortab Nausea control- zofran diet: advance Malnutrition: 3.1 albumin prior to surgery. due to massive diarrhea pt become dizzy and malnourished, therefore she underwent reversal of the bp limb lengthening previously performed. will restart tpn at home. will follow up in office for starting tube feeds if needed Depression: continue home medication GI/DVT proph continue to ambulate and use IS Dispo: DC when afebrile for 24hrs. tolerating clears, pain controlled= dc today since criteria met. Kcl elixer given prior to dc for hypolemia. pt to restart tpn at home Subjective Narrative: Pt feeling better. She had a bm and tolerating more liquids. She doesnt like the hospital food. She ambulated well. She feels less bloated. Denies upper extremities pain or swelling. g tube capped and has been tolerating afebrile x 24hrs. Objective Vital Signs - 12hr 01/17/18 01/17/18 01/17/18 04:07 04:08 05:20 Temperature 98.6 F Pulse Rate 102 H 99 H Respiratory 20 18 Rate Blood Pressure 144/85 Blood Pressure [Left] O2 Sat by Pulse 99 99 Oximetry 01/17/18 01/17/18 01/17/18 05:50 07:38 07:39 Temperature 97.6 F Pulse Rate 94 H 94 H Respiratory 18 18 Rate Blood Pressure 150/90 150/90 Blood Pressure [Left] O2 Sat by Pulse 100 99 Oximetry 01/17/18 01/17/18 01/17/18 12:00 12:36 12:37 Temperature 99.3 F Pulse Rate 95 H 95 H 95 H Respiratory 18 Rate Blood Pressure Blood Pressure 140/87 [Left] O2 Sat by Pulse 98 97 97 Oximetry - General physical appearance well developed, well nourished, no distress - Respiratory normal expansion, normal respiratory effort - Abdomen soft, other (obese, incision sites cdi. umbilical incision cdi. repacked with gauze. G tube site- less drainage from wafer site. redressed. tender at site. ) - Integumentary no rash, no growths - Neurologic normal coordination, normal sensation - Musculoskeletal normal gait, normal posture - Psychiatric oriented to time, oriented to person, oriented to place, speech is normal - Labs 01/17/18 13:45 01/17/18 13:45 Diabetes panel 01/16/18 01/17/18 Range/Units 14:40 13:45 Sodium 139 136 L (137-145) mmol/L Potassium 3.2 L 3.3 L (3.6-5.0) mmol/L Chloride 98.5 98.9 (98-107) mmol/L Carbon Dioxide 25 26 (22-30) mmol/L BUN 5 L 4 L (7-17) mg/dL Creatinine 0.4 L 0.4 L (0.7-1.2) mg/dL Glucose 73 77 (65-100) mg/dL Calcium 7.9 L 7.7 L (8.4-10.2) mg/dL Calcium panel 01/16/18 01/17/18 Range/Units 14:40 13:45 Calcium 7.9 L 7.7 L (8.4-10.2) mg/dL Pituitary panel 01/16/18 01/17/18 Range/Units 14:40 13:45 Sodium 139 136 L (137-145) mmol/L Potassium 3.2 L 3.3 L (3.6-5.0) mmol/L Chloride 98.5 98.9 (98-107) mmol/L Carbon Dioxide 25 26 (22-30) mmol/L BUN 5 L 4 L (7-17) mg/dL Creatinine 0.4 L 0.4 L (0.7-1.2) mg/dL Glucose 73 77 (65-100) mg/dL Calcium 7.9 L 7.7 L (8.4-10.2) mg/dL Adrenal panel 01/16/18 01/17/18 Range/Units 14:40 13:45 Sodium 139 136 L (137-145) mmol/L Potassium 3.2 L 3.3 L (3.6-5.0) mmol/L Chloride 98.5 98.9 (98-107) mmol/L Carbon Dioxide 25 26 (22-30) mmol/L BUN 5 L 4 L (7-17) mg/dL Creatinine 0.4 L 0.4 L (0.7-1.2) mg/dL Glucose 73 77 (65-100) mg/dL Calcium 7.9 L 7.7 L (8.4-10.2) mg/dL
--- NOTE | 2018-01-17 15:16 | Discharge Summary ---
Providers - Providers Date of Admission: 01/12/18 07:47 Attending physician: ISAC GRAF Primary care physician: BREE COBIAN Hospitalization Reason for admission: surgery Procedures: laparoscopic reversal of entero-enterostomy with Gastric tube placement Hospital course: 47 y.o. F admitted for surgery. She had a laparoscopic reversal of entero- enterostomy with Gastric tube placement. she tolerated the procedure well. Post operatively she had pain at the G tube site which was treated with pain medications including narcotics and muscle relaxer. during her hospital course she had a fever and increasing leukocytosis. she was villanueva cultured, cxr and abdominal xr were obtained. The cultures and the CXR were negative. The abd xr showed she had an ileus and her G tube was placed to gravity with johnson bag. pt had a hx of DVT in her lue therefore bl upper extremity duplex were also completed since she started to have bl arm swelling and had not been restarted on her xarelto. The prelim. read on the upper ex duplex was negative however she was started on theraputic lovenox while in the hospital and will be changed to her home xarelto at time of discharge. the following day she was feeling better. She passed flatus. Her leukocytosis also improved. She was afebrile for 24hrs prior to discharge. The day of discharge she had a bm and felt less distended. She understands how to care for the G tube. 2 sutures were removed from the g tube because the wafer was tight on her skin and causing pain. She will restart her tpn at home via picc line she presented with at time of admission. KCL po was given prior to discharge for hypokalmia. At time of follow up in our office she will be evaluated to be to started on tube feeds. An rx for percocet and robaxin was provided at time of discharge. Disposition: [id number] HOME UNDER HOME [facility] Core Measure Documentation - Palliative Care Palliative Care/ Comfort Measures: Not Applicable - Core Measures Any of the following diagnoses?: history only (LUE DVT per HX. ) - VTE Discharge Requirements Deep Vein Thrombosis/Pulmonary Embolism Present on Admission: Yes Has pt received <5 days of overlap therapy or INR<2.0: Yes Anticoagulant overlap therapy prescribed at discharge: No Contraindication No Overlap Therapy order at DC: Not Indicated (xarelto at home) Exam - Physical Exam Narrative exam: no change from prior in day - Constitutional Vitals: Temp Pulse Resp BP Pulse Ox 99.3 F 95 H 18 140/87 97 01/17/18 12:00 01/17/18 12:37 01/17/18 12:00 01/17/18 12:00 01/17/18 12:37 Plan Activity: other (no lifting >15lbs for 6 weeks after surgery) Diet: other (liquids and advance as tolerated. ) Additional Instructions: Prescription for percocet and robaxin is provided. Take the robaxin if you have muscle type of pain at the left side near the gastric tube. Change the dressing at the Gastric tube site daily. If there is excessive drainage or bleeding around the tube call the office. Continue to walk often. Follow up with: BREE COBIAN MD [Primary Care Provider] - 7 Days ISAC GRAF MD [Staff Physician] - 7 Days
[2018-01-17 15:22] LABS: Band Neutrophils # (Manual) 0.1 K/mm3; Basophils % (Manual) 0 % (0.0-1.8); Myelocytes # (Manual) 0.1 K/mm3; Total Cells Counted 100
[2018-01-17 15:23] LABS: Hypochromasia 1+; Target Cells Few
[2018-01-17 15:24] LABS: Platelet Estimate Consistent w Auto
[2018-01-17] MEDS ORDERED: POTASSIUM CHLORIDE PO SCH (15:30)
[2018-01-17 16:44] VITALS: BP 143/93
--- NOTE | 2018-01-19 12:28 | Vascular Lab Report ---
UPPER EXTREMITY VENOUS DUPLEX: REASON FOR EXAM: Pain and swelling of the upper extremities COMMENTS ON THE RIGHT: All arm veins visualized are freely compressible without evidence of internal echogenicity. The subclavian and internal jugular veins are free of thrombus. Flow is spontaneous and phasic throughout. COMMENTS ON THE LEFT: All arm veins visualized are freely compressible without evidence of internal echogenicity. The subclavian and internal jugular veins are free of thrombus. Flow is spontaneous and phasic throughout. An intravenous catheter is noted in the brachial vein. IMPRESSION: No evidence of acute or chronic deep venous thrombosis in the upper extremities. An intravenous catheter is noted in the brachial vein on the left.
== END 2018-01-17 16:30 | disposition home health service (06) | DRG 329 ==
LOC: 3A 07:47 → 3B-SURG 14:04
PROVIDERS: ADMIT Specialist; ATTEND Specialist
PROC: 0D1B4ZH Bypass Ileum to Cecum, Percutaneous Endoscopic Approach (ICD-10-PCS; principal; 2018-01-12)
PROC: 0DH64UZ Insertion of Feeding Device into Stomach, Percutaneous Endoscopic Approach (ICD-10-PCS; 2018-01-12)
DX: K91.2 Postsurgical malabsorption, not elsewhere classified (principal); E43 Unspecified severe protein-calorie malnutrition; K95.89 Other complications of other bariatric procedure; K56.7 Ileus, unspecified; G47.30 Sleep apnea, unspecified; E66.01 Morbid (severe) obesity due to excess calories; D72.829 Elevated white blood cell count, unspecified; F41.9 Anxiety disorder, unspecified; F32.9 Major depressive disorder, single episode, unspecified; I95.89 Other hypotension; K64.9 Unspecified hemorrhoids; E83.42 Hypomagnesemia; Z68.36 Body mass index [BMI] 36.0-36.9, adult; Z86.718 Personal history of other venous thrombosis and embolism; Y83.2 Surgical operation with anastomosis, bypass or graft as the cause of abnormal reaction of the patient, or of later complication, without mention of misadventure at the time of the procedure; Y92.9 Unspecified place or not applicable
CPT/HCPCS: 36415; 71046; 74019; 80048; 80053; 81001; 81025; 82962; 83735; 84100; 85007; 85025; 86850; 86870; 86900; 86901; 86922; 87040; 87086; 87116; 93970; C9113; J0690; J1170; J1650; J2250; J2270; J2370; J2405; J2704; J2710; J2765; J2800; J3010; J3475; J7050; J7120